=== PATIENT | male | born 1990 | race Caucasian/White ===

== ENCOUNTER 2020-08-01 15:35 | Emergency (ER) | payer OTHER ==
[2020-08-01 15:51] VITALS: TEMP 98.5
[2020-08-01] MEDS ORDERED: POVIDONE IODINE 10 % 15 ML UD TOP ONE ×2 (15:53→17:03)
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
[2020-08-01] MEDS ORDERED: LIDOCAINE 1% W/ EPINEPHRINE 20 ML VIAL INJ STA (16:17)
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
[2020-08-01] MEDS ORDERED: NEOMYCIN-BACITRACIN-POLYMYXIN 0.9 GM UD TOP ONE (17:44)
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
[2020-08-01 18:31] VITALS: BP 135/70; O2SAT 95
== END 2020-08-01 18:31 | disposition home or self-care (01) ==
LOC: ER 15:35
DX: S87.81XA Crushing injury of right lower leg, initial encounter (principal); S61.411A Laceration without foreign body of right hand, initial encounter; S80.811A Abrasion, right lower leg, initial encounter; S00.81XA Abrasion of other part of head, initial encounter; M25.571 Pain in right ankle and joints of right foot; S61.212A Laceration without foreign body of right middle finger without damage to nail, initial encounter; Z87.891 Personal history of nicotine dependence; V86.59XA Driver of other special all-terrain or other off-road motor vehicle injured in nontraffic accident, initial encounter; Y92.9 Unspecified place or not applicable